=== PATIENT | male | born 1995 | race Caucasian/White ===

== ENCOUNTER → 2019-03-15 | Outpatient (CLI) | payer OTHER ==
[2019-03-15 08:18] LABS: Basophils % (A) 0 %; Eosinophils # (A) 0.2 k/uL (0-0.7); Eosinophils % (A) 4 %; HCT 38.9 % (39.0-53.0); HGB 13.8 gm/dL (13.0-17.5); Lymphocytes # (A) 0.9 k/uL (1.0-4.8); Lymphocytes % (A) 16 %; MCH 30.9 pg (25.0-35.0); MCHC 35.6 g/dL (31.0-37.0); MCV 86.7 fL (80.0-100.0); Mean Platelet Volume 6.6; Monocytes # (A) 0.3 k/uL (0-1.0); Monocytes % (A) 5 %; Neutrophils # (A) 4.1 k/uL (1.3-7.7); Neutrophils % (A) 73 %; Platelet Count 257 k/uL (150-450); RBC 4.48 m/uL (4.30-5.90); RDW 11.8 % (11.5-15.5); WBC 5.6 k/uL (3.8-10.6)
[2019-03-15 12:17] LABS: Albumin 4.9 g/dL (3.80-4.90); Albumin/Globulin Ratio 2.45 (1.60-3.17); Anion Gap 9.4 mmol/L (4.00-12.00); BUN/Creat Ratio 14.29 Ratio (12.00-20.00); Calcium 9.2 mg/dL (8.7-10.3); Carbon Dioxide 26.6 mmol/L (21.6-31.8); Chol/HDL Ratio 2.68; Non-African American GFR(CKD) 131.2 (60.0-200.0); Potassium 4.7 mmol/L (3.5-5.5); Total Bilirubin 0.6 mg/dL (0.2-1.2); Total Protein 6.9 g/dL (6.2-8.2)
[2019-03-15 12:39] LABS: Prolactin 30.1 ng/mL (2.1-17.7)
[2019-03-15 19:29] LABS: Hemoglobin A1C 4.6 % (4.0-6.0)
== END | disposition home or self-care (01) ==
LOC: EEVIPCON 07:33 → LABWHC1 07:33
DX: E83.59 Other disorders of calcium metabolism (principal); R63.4 Abnormal weight loss; Z79.899 Other long term (current) drug therapy
CPT/HCPCS: 36415; 80053; 80061; 83036; 84146; 84443; 85025

== ENCOUNTER → 2021-04-08 | Outpatient (CLI) | payer OTHER ==
[2021-04-08 09:00] LABS: Basophils % (A) 1 %; Eosinophils # (A) 0.1 k/uL (0-0.7); Eosinophils % (A) 3 %; Lymphocytes # (A) 0.8 k/uL (1.0-4.8); Lymphocytes % (A) 24 %; MCH 31.5 pg (25.0-35.0); MCV 89.9 fL (80.0-100.0); Mean Platelet Volume 6.6; Monocytes # (A) 0.4 k/uL (0-1.0); Monocytes % (A) 10 %; Neutrophils % (A) 59 %; Platelet Count 339 k/uL (150-450); RBC 4.45 m/uL (4.30-5.90); RDW 12.2 % (11.5-15.5); WBC 3.5 k/uL (3.8-10.6)
[2021-04-08 09:26] LABS: Albumin 4.8 g/dL (3.5-5.0); Albumin/Globulin Ratio 1.7; Bilirubin,Unconjugated 0.7 mg/dL (0.0-1.1); Globulin 2.9 g/dL; Potassium 4.3 mmol/L (3.5-5.1); Total Bilirubin 1.1 mg/dL (0.2-1.3); Total Protein 7.7 g/dL (6.3-8.2)
[2021-04-08 17:23] LABS: HDL Cholesterol 73.9 mg/dL (40.00-60.00); Triglycerides 40.6 mg/dL (0.00-149.00)
[2021-04-08 17:41] LABS: Chol/HDL Ratio 2.22 Ratio; LDL Cholesterol,Direct Reflex 87.2 mg/dL (0.00-129.00)
== END | disposition home or self-care (01) ==
LOC: LABWHC1 06:56
DX: Z79.899 Other long term (current) drug therapy (principal)
CPT/HCPCS: 36415; 80051; 80061; 80076; 82947; 83036; 83721; 84146; 84443; 85025

== ENCOUNTER → 2022-07-25 | Outpatient (CLI) | payer OTHER ==
[2022-07-25 11:17] LABS: Basophils # (A) 0.02 X 10*3/uL (0.00-0.10); Basophils % (A) 0.4 %; Eosinophils # (A) 0.22 X 10*3/uL (0.04-0.35); Eosinophils % (A) 4.9 %; HCT 37.5 % (39.6-50.0); HGB 13.4 g/dL (13.0-17.0); Immature Grans, Automated 0.2 %; Lymphocytes # (A) 1.13 X 10*3/uL (0.90-5.00); Lymphocytes % (A) 25.3 %; MCH 30.9 pg (27.0-32.0); MCHC 35.7 g/dL (32.0-37.0); MCV 86.4 fL (80.0-97.0); Mean Platelet Volume 8.8 fL (9.5-12.2); Monocytes # (A) 0.33 X 10*3/uL (0.20-1.00); Monocytes % (A) 7.4 %; NRBC Per 100 WBC 0 /100 WBCS (0.0-0.0); Neutrophils # (A) 2.76 X 10*3/uL (1.80-7.70); Neutrophils % (A) 61.8 %; Platelet Count 308 X 10*3/uL (140-440); RBC 4.34 X 10*6/uL (4.40-5.60); RDW 11.7 % (11.5-14.5); WBC 4.47 X 10*3/uL (4.50-10.00)
[2022-07-25 11:36] LABS: ALT 15 U/L (10-49); AST 25 U/L (14-35); African American GFR (CKD) 153.6 (60.0-200.0); Albumin 4.9 g/dL (3.8-4.9); Albumin/Globulin Ratio 2.21 (1.60-3.17); Alkaline Phosphatase 133 U/L (41-126); Bilirubin, Conjugated <0.20 mg/dL (0.20-0.40); Blood Urea Nitrogen 8.4 mg/dL (9.0-27.0); Calcium 9.2 mg/dL (8.7-10.3); Carbon Dioxide 24.3 mmol/L (20.0-27.5); Chloride 92 mmol/L (96-109); Chol/HDL Ratio 2.88 Ratio; Globulin 2.2 g/dL (1.6-3.3); Glucose 88 mg/dL (70-110); LDL Cholesterol,Calculated 122.8 mg/dL (0.0-131.0); Non-African American GFR(CKD) 132.6 (60.0-200.0); Potassium 4.3 mmol/L (3.5-5.5); Sodium 126 mmol/L (135-145); Total Protein 7.1 g/dL (6.2-8.2); VLDL Calculation 12.86 mg/dL (5.00-40.00)
== END | disposition home or self-care (01) ==
LOC: LABWHC1 07:21
PROVIDERS: ATTEND Registered Nurse
DX: Z79.899 Other long term (current) drug therapy (principal)
CPT/HCPCS: 36415; 80053; 80061; 80183; 82248; 82306; 83036; 84439; 84443; 85025